=== PATIENT | female | born 1960 | race Caucasian/White ===

== ENCOUNTER 2023-11-07 16:51 | Inpatient (IN) ==
[2023-11-07 17:59] LABS: ABS Lymphocytes 0.7 10^3/uL (1.0-4.8); ABS Monocytes 0.6 10^3/uL (0.0-0.9); ABS Neutrophils 14.8 10^3/uL (1.5-7.6); Hematocrit 37.5 % (35-45); Hemoglobin 12.7 g/dL (11.5-14.3); Lymphocyte % 4.2 %; Mean Corpuscular Hemoglobin 32.2 pg (27-33); Mean Corpuscular Hgb Conc 33.9 g/dL (31-36); Mean Platelet Volume 8.1 fL (7.5-11.2); Platelet Count 325 10^3/uL (150-450); Red Blood Count 3.94 10^6/uL (3.63-4.92); Red Cell Distribution Width 13.6 % (12-17); White Blood Count 16.1 10^3/uL (3.8-11.8)
[2023-11-07] MEDS: Lactated Ringers SEPSIS* BAG 1,780 ML IV ONE (18:01)
[2023-11-07 18:15] LABS: Urine Appearance Turbid; Urine Bilirubin Negative (Negative); Urine Blood 3+ (Negative); Urine Color Yellow; Urine Glucose Trace (Negative); Urine Ketones 1+ (Negative); Urine Nitrite Negative (Negative); Urine Protein 2+ (>=100 mg/dL) (Negative); Urine Urobilinogen 2+ (Negative); Urine pH 6.5 (5.0-8.0)
[2023-11-07 18:17] LABS: Activated Partial Thrombo Time 29.4 seconds (26.0-38.0); INR 1.12 (0.83-1.13); Urine Bacteria Absent /HPF (Absent); Urine Red Blood Cell 3+(>10/hpf) /HPF (0-Trace); Urine Squamous Epithelial Cell Present /HPF (Absent); Urine White Blood Cell 2+(11-20/hpf) /HPF (0-Trace)
[2023-11-07 18:44] LABS: Albumin 3.4 g/dL (3.2-5.2); Albumin/Globulin Ratio 1.3 (1-3); Calcium 8.6 mg/dL (8.6-10.3); Creatinine, Serum 0.76 mg/dL (0.51-0.95); Globulin 2.7 g/dL (2-4); Potassium 3.3 mmol/L (3.5-5.0); Total Bilirubin 0.6 mg/dL (0.2-1.0); Total Protein 6.1 g/dL (6.4-8.9)
[2023-11-07 19:38] LABS: High Sensitivity Troponin 1 Hr 3004 pg/mL (<15)
[2023-11-07] MEDS: Iohexol 350 (CONTRAST) 500 ML MDV IV ONE (20:31)
[2023-11-07] MEDS: Heparin DRIP 25,000 UNITS BAG 25,000 UNITS/250 ML BAG IV SCH (21:18)
[2023-11-07] MEDS: Heparin 5000 UNITS/ML 1 mL VIAL IV SCH (21:19)
[2023-11-07 21:20] LABS: Creatinine, Serum 0.6 mg/dL (0.51-0.95); eGFR CKD-EPI 100.8 (>60)
[2023-11-07] MEDS ORDERED: Nitroglycerin 0.3 mg TAB SL ONE (22:09)
[2023-11-07] MEDS: KCL 20 MEQ/100 ML IVPREMIX 20 MEQ/100 ML BAG IV SCH (22:28)
[2023-11-07] MEDS ORDERED: Cefepime ADVAN 1 GM in NS 0.9% 50 ML 50 ML IVPB SCH (23:00)
[2023-11-07] MEDS ORDERED: Dextrose 50% Syringe 50 ml 25 GM/50 ML SYRINGE IV PUSH PRN (23:22)
[2023-11-07] MEDS: LoraTADine 10 mg TAB (NF) PO ONE (23:37)
[2023-11-08] MEDS: Calcium Carb (TUMS) 500 mg CHEW TAB PO ONE (00:12)
[2023-11-08] MEDS: Cefepime 1 GM in Dextrose 1 GM/50 ML BAG IV SCH (00:12)
[2023-11-08] MEDS: Lactated Ringers 1000 ml BAG 1,000 ML IV ONE (02:42)
[2023-11-08 03:58] LABS: TSH Ultra Thyroid Stim Horm 0.54 mcIU/mL (0.34-5.60)
[2023-11-08 05:26] LABS: ABS Basophils 0.1 10^3/uL (0.0-0.1); ABS Lymphocytes 0.8 10^3/uL (1.0-4.8); ABS Monocytes 0.7 10^3/uL (0.0-0.9); ABS Neutrophils 13.1 10^3/uL (1.5-7.6); Hematocrit 31.2 % (35-45); Hemoglobin 10.9 g/dL (11.5-14.3); Lymphocyte % 5.7 %; Mean Corpuscular Hemoglobin 32.8 pg (27-33); Mean Corpuscular Hgb Conc 34.8 g/dL (31-36); Mean Corpuscular Volume 94.2 fL (80-97); Mean Platelet Volume 7.7 fL (7.5-11.2); Platelet Count 306 10^3/uL (150-450); Red Blood Count 3.32 10^6/uL (3.63-4.92); Red Cell Distribution Width 13.5 % (12-17); White Blood Count 14.7 10^3/uL (3.8-11.8)
[2023-11-08 06:53] LABS: Creatinine, Serum 0.6 mg/dL (0.51-0.95); Magnesium 1.7 mg/dL (1.9-2.7); Potassium 2.8 mmol/L (3.5-5.0); eGFR CKD-EPI 100.8 (>60)
[2023-11-08] MEDS: Magnesium Sulfate 2 gm BAG 2 GM/50 ML BAG IVPB ONE (08:43)
[2023-11-08] MEDS: Potassium Chlor 20 meq TAB.ER PO ONE (08:43)
[2023-11-08] MEDS ORDERED: Sulfur Hexaflouride MICROSPHR 25 MG VIAL ONE (09:32)
[2023-11-08] MEDS: KCL 20 MEQ/100 ML IVPREMIX 20 MEQ/100 ML BAG IV SCH (10:06)
[2023-11-08 10:14] LABS: Albumin 2.8 g/dL (3.2-5.2); Albumin/Globulin Ratio 1.1 (1-3); Globulin 2.6 g/dL (2-4); Phosphorus 2.4 mg/dL (2.5-5.0); Total Bilirubin 0.7 mg/dL (0.2-1.0); Total Protein 5.4 g/dL (6.4-8.9)
[2023-11-08 10:32] LABS: High Sensitivity Troponin 1 Hr 3443 pg/mL (<15)
[2023-11-08 13:21] LABS: High Sensitivity Troponin 1 Hr 2805 pg/mL (<15); High Sensitivity Troponin 3 Hr 2805 pg/mL (<15)
[2023-11-08] MEDS: cefTRIAXone 2 gm/50 mL D5W 2 GM/50 ML BAG IV SCH (16:48)
[2023-11-08] MEDS ORDERED: Vancomycin per Pharmacy 1 EA NOTE FOLLOW UP SCH (17:00)
[2023-11-08] MEDS: Vancomycin 1,500 MG in NS 0.9% 250 ml 250 ML IVPB ONE (17:53)
[2023-11-08] MEDS: Lactated Ringers 1000 ml BAG 1,000 ML IV SCH (17:53)
[2023-11-08] MEDS: Heparin 5000 UNITS/ML 1 mL VIAL IV PRN (18:26)
[2023-11-08] MEDS: Heparin DRIP 25,000 UNITS BAG 25,000 UNITS/250 ML BAG IV SCH (18:28)
[2023-11-08 19:45] LABS: ABS Lymphocytes 0.7 10^3/uL (1.0-4.8); ABS Monocytes 0.6 10^3/uL (0.0-0.9); ABS Neutrophils 16.2 10^3/uL (1.5-7.6); Hematocrit 31.2 % (35-45); Hemoglobin 10.7 g/dL (11.5-14.3); Mean Corpuscular Hemoglobin 32.4 pg (27-33); Mean Corpuscular Hgb Conc 34.1 g/dL (31-36); Mean Corpuscular Volume 94.8 fL (80-97); Mean Platelet Volume 8.2 fL (7.5-11.2); Platelet Count 338 10^3/uL (150-450); Red Cell Distribution Width 13.8 % (12-17); White Blood Count 17.5 10^3/uL (3.8-11.8)
[2023-11-09] MEDS: Vancomycin 1,500 MG in NS 0.9% 250 ml 250 ML IVPB SCH (06:23)
[2023-11-09 06:51] LABS: ABS Lymphocytes 0.9 10^3/uL (1.0-4.8); ABS Monocytes 0.6 10^3/uL (0.0-0.9); ABS Neutrophils 14.4 10^3/uL (1.5-7.6); ABS Nucleated RBC 0.02 10^3/ul; Hematocrit 27.8 % (35-45); Hemoglobin 9.8 g/dL (11.5-14.3); Lymphocyte % 5.8 %; Mean Corpuscular Hemoglobin 33.2 pg (27-33); Mean Corpuscular Hgb Conc 35.3 g/dL (31-36); Mean Corpuscular Volume 94.2 fL (80-97); Mean Platelet Volume 8.2 fL (7.5-11.2); Nucleated Red Blood Cells % 0.1 %/100WBC (0.0-0.8); Platelet Count 346 10^3/uL (150-450); Red Blood Count 2.95 10^6/uL (3.63-4.92); Red Cell Distribution Width 13.8 % (12-17); White Blood Count 15.9 10^3/uL (3.8-11.8)
[2023-11-09 07:06] LABS: Calcium 7.6 mg/dL (8.6-10.3); Creatinine, Serum 0.6 mg/dL (0.51-0.95); Magnesium 1.9 mg/dL (1.9-2.7); Potassium 3.6 mmol/L (3.5-5.0); eGFR CKD-EPI 100.8 (>60)
[2023-11-09] MEDS: Sulfur Hexaflouride MICROSPHR 25 MG VIAL IV ONE (07:08)
[2023-11-09 09:40] LABS: Phosphorus 2.3 mg/dL (2.5-5.0)
[2023-11-09] MEDS: Magnesium Sulfate IV 1GM/100ML 1 GM/100 ML BAG IV ONE (10:06)
[2023-11-09 12:47] LABS: Hematocrit 28.8 % (35-45); Hemoglobin 9.8 g/dL (11.5-14.3); Mean Corpuscular Hemoglobin 32.1 pg (27-33); Mean Corpuscular Hgb Conc 34.2 g/dL (31-36); Mean Corpuscular Volume 93.8 fL (80-97); Mean Platelet Volume 7.8 fL (7.5-11.2); Platelet Count 372 10^3/uL (150-450); Red Blood Count 3.07 10^6/uL (3.63-4.92); Red Cell Distribution Width 13.5 % (12-17); White Blood Count 14.3 10^3/uL (3.8-11.8)
[2023-11-09 12:56] LABS: INR 1.14 (0.83-1.13)
[2023-11-09] MEDS: Potassium Phosphate IV 10 MMOL in NS 0.9% 250 ml 250 ML IVPB ONE (13:47)
[2023-11-09 15:30] LABS: Body Fluid Source Cerebral Spinal
[2023-11-09 15:42] LABS: CSF Glucose 74 mg/dL (40-70)
[2023-11-09] MEDS: Lactated Ringers 1000 ml BAG 500 ML IV ONE (15:56)
[2023-11-09] MEDS: Acetaminophen IV 1 GM/100ML 1,000 MG/100 ML BAG IV ONE (16:05)
[2023-11-09 16:21] LABS: Body Fluid Appearance Clear; Body Fluid Color Colorless; CSF Tube # 4
[2023-11-09 16:46] LABS: ABS Lymphocytes 0.6 10^3/uL (1.0-4.8); ABS Monocytes 0.7 10^3/uL (0.0-0.9); ABS Neutrophils 12.9 10^3/uL (1.5-7.6); ABS Nucleated RBC 0.02 10^3/ul; Eosinophil % 0.1 %; Hematocrit 28.4 % (35-45); Hemoglobin 9.6 g/dL (11.5-14.3); Lymphocyte % 4.1 %; Mean Corpuscular Hemoglobin 31.5 pg (27-33); Mean Corpuscular Hgb Conc 33.8 g/dL (31-36); Mean Corpuscular Volume 93.3 fL (80-97); Mean Platelet Volume 7.8 fL (7.5-11.2); Nucleated Red Blood Cells % 0.1 %/100WBC (0.0-0.8); Platelet Count 361 10^3/uL (150-450); Red Blood Count 3.05 10^6/uL (3.63-4.92); Red Cell Distribution Width 13.9 % (12-17); White Blood Count 14.2 10^3/uL (3.8-11.8)
[2023-11-09 17:40] LABS: Albumin 2.6 g/dL (3.2-5.2); Albumin/Globulin Ratio 1.1 (1-3); C Reactive Protein 379.92 mg/L (<8.01); Calcium 7.6 mg/dL (8.6-10.3); Creatinine, Serum 0.68 mg/dL (0.51-0.95); Globulin 2.4 g/dL (2-4); Magnesium 2.1 mg/dL (1.9-2.7); Phosphorus 2.1 mg/dL (2.5-5.0); Potassium 3.8 mmol/L (3.5-5.0); Total Bilirubin 0.6 mg/dL (0.2-1.0); eGFR CKD-EPI 97.8 (>60)
[2023-11-09] MEDS ORDERED: Zosyn per Pharmacy NOTE FOLLOW UP SCH (18:00)
[2023-11-09 18:05] LABS: Body Fluid Mono 28 %; Body Fluid Total Cells Counted 200
[2023-11-09 18:14] LABS: CSF Body Fluid WBC 2 /mcL
[2023-11-09 18:19] LABS: High Sensitivity Troponin 1 Hr 691 pg/mL (<15)
[2023-11-09 19:02] LABS: RBC Parasite Smear No Parasites Seen (No Parasite)
[2023-11-09] MEDS: Sodium Phosphate IV 15 MMOL in NS 0.9% 250 ml 250 ML IV ONE (19:54)
[2023-11-09] MEDS: NS 0.9% 500 ml BAG 500 ML IV ONE (19:56)
[2023-11-09] MEDS: Piperacillin/Tazobac 3.375 BAG 3.375 GM/100 ML BAG IV ONE (21:09)
[2023-11-09] MEDS: DOXYcycline 100 MG in NS 0.9% 250 ml 250 ML IVPB SCH (22:18)
[2023-11-09] MEDS: Acetaminophen IV 1 GM/100ML 1,000 MG/100 ML BAG IV SCH (22:46)
[2023-11-10] MEDS: ZOSYN 3.375 GM Q8H per EXTENDED INFUSION IV SCH (01:05)
[2023-11-10] MEDS: Iohexol 300 (CONTRAST) 10 ML SDV IV ONE (04:09)
[2023-11-10 06:02] LABS: ABS Lymphocytes 0.7 10^3/uL (1.0-4.8); ABS Monocytes 0.6 10^3/uL (0.0-0.9); ABS Neutrophils 11.9 10^3/uL (1.5-7.6); ABS Nucleated RBC 0.01 10^3/ul; Eosinophil % 0.1 %; Hematocrit 26.4 % (35-45); Hemoglobin 9.1 g/dL (11.5-14.3); Lymphocyte % 5.6 %; Mean Corpuscular Hemoglobin 32.3 pg (27-33); Mean Corpuscular Hgb Conc 34.5 g/dL (31-36); Mean Corpuscular Volume 93.4 fL (80-97); Mean Platelet Volume 7.9 fL (7.5-11.2); Nucleated Red Blood Cells % 0.1 %/100WBC (0.0-0.8); Platelet Count 361 10^3/uL (150-450); Red Blood Count 2.83 10^6/uL (3.63-4.92); White Blood Count 13.4 10^3/uL (3.8-11.8)
[2023-11-10 06:18] LABS: Albumin 2.4 g/dL (3.2-5.2); Calcium 7.4 mg/dL (8.6-10.3); Creatinine, Serum 0.72 mg/dL (0.51-0.95); Globulin 2.5 g/dL (2-4); Magnesium 2.1 mg/dL (1.9-2.7); Phosphorus 3.4 mg/dL (2.5-5.0); Potassium 3.4 mmol/L (3.5-5.0); Total Bilirubin 0.5 mg/dL (0.2-1.0); Total Protein 4.9 g/dL (6.4-8.9); eGFR CKD-EPI 93.9 (>60)
[2023-11-10] MEDS: Vancomycin Trough Check NOTE FOLLOW UP ONE (08:41)
[2023-11-10] MEDS: Potassium Chlor 20 meq TAB.ER PO ONE (09:17)
[2023-11-10 09:18] LABS: High Sensitivity Troponin 1 Hr 366 pg/mL (<15)
[2023-11-10] MEDS ORDERED: Calcium Carb (TUMS) 500 mg CHEW TAB PO PRN (11:23)
[2023-11-10] MEDS: Enoxaparin 40 MG/0.4 ML SYR SUBCUT SCH (22:40)
[2023-11-11 00:52] LABS: Anaplasma phagocytophilum Positive (Negative); B. miyamotoi PCR, B Negative (Negative); Babesia divergens/MO-1 Negative (Negative); Babesia ducani Negative (Negative); Ehrlichia chaffeensis Negative (Negative); Ehrlichia ewingii/canis Negative (Negative); Ehrlichia muris eauclairensis Negative (Negative)
[2023-11-11 07:49] LABS: Hematocrit 27.2 % (35-45); Hemoglobin 9.6 g/dL (11.5-14.3); Mean Corpuscular Hemoglobin 33.6 pg (27-33); Mean Corpuscular Hgb Conc 35.2 g/dL (31-36); Mean Corpuscular Volume 95.4 fL (80-97); Mean Platelet Volume 8.2 fL (7.5-11.2); Platelet Count 463 10^3/uL (150-450); Red Blood Count 2.85 10^6/uL (3.63-4.92); Red Cell Distribution Width 14.4 % (12-17); White Blood Count 9.3 10^3/uL (3.8-11.8)
[2023-11-11 08:30] LABS: Calcium 7.7 mg/dL (8.6-10.3); Creatinine, Serum 0.66 mg/dL (0.51-0.95); HDL Cholesterol 5.1 mg/dL; Magnesium 2.2 mg/dL (1.9-2.7); Potassium 4.1 mmol/L (3.5-5.0); eGFR CKD-EPI 98.5 (>60)
[2023-11-11 08:44] LABS: ABS Basophils 0.1 10^3/uL (0.0-0.1); ABS Eosinophils 0.2 10^3/uL (0.0-0.5); ABS Lymphocytes 1.1 10^3/uL (1.0-4.8); ABS Neutrophils 6.9 10^3/uL (1.5-7.6); ABS Nucleated RBC 0.01 10^3/ul; Eosinophil % 1.9 %; Lymphocyte % 11.6 %; Nucleated Red Blood Cells % 0.1 %/100WBC (0.0-0.8)
[2023-11-12] MEDS ORDERED: Vancomycin Trough Check NOTE FOLLOW UP ONE (05:30)
[2023-11-12 07:02] LABS: Hematocrit 29.4 % (35-45); Hemoglobin 10.5 g/dL (11.5-14.3); Mean Corpuscular Hemoglobin 33.5 pg (27-33); Mean Corpuscular Hgb Conc 35.5 g/dL (31-36); Mean Corpuscular Volume 94.2 fL (80-97); Platelet Count 632 10^3/uL (150-450); Red Blood Count 3.12 10^6/uL (3.63-4.92); Red Cell Distribution Width 14.3 % (12-17); White Blood Count 7.9 10^3/uL (3.8-11.8)
[2023-11-12 07:15] LABS: Calcium 7.8 mg/dL (8.6-10.3); Creatinine, Serum 0.64 mg/dL (0.51-0.95); Potassium 4.2 mmol/L (3.5-5.0); eGFR CKD-EPI 99.2 (>60)
[2023-11-12 07:36] LABS: ABS Eosinophils 0.1 10^3/uL (0.0-0.5); ABS Lymphocytes 1.4 10^3/uL (1.0-4.8); ABS Neutrophils 5.3 10^3/uL (1.5-7.6); ABS Nucleated RBC 0.01 10^3/ul; Eosinophil % 1.8 %; Lymphocyte % 17.9 %; Nucleated Red Blood Cells % 0.2 %/100WBC (0.0-0.8); RBC Morphology Normal (Normal)
[2023-11-12 13:29] VITALS: BP 93/64
[2023-11-12 16:04] LABS: EBV Capsid Ag IgG Ab Positive (Negative); EBV Capsid Ag IgM Ab Negative (Negative); Epstein-Barr Nuclear Antigen Positive (Negative)
[2023-11-12 22:24] LABS: HSV 1 PCR, CSF Negative (Negative); HSV 2 PCR, CSF Negative (Negative)
[2023-11-13 11:06] LABS: Cytomegalovirus IgG Antibody Negative (Negative)
[2023-11-13 11:30] LABS: Flag, M-protein Isotype Negative (Negative); Immunoglobulin A (IgA), S 226 mg/dL (61 - 356); Immunoglobulin G (IgG), S 656 mg/dL (767 - 1590); Immunoglobulin M (IgM), S 405 mg/dL (37 - 286)
== END 2023-11-12 16:30 | disposition home health service (06) | DRG 871 ==
LOC: EDHOLD 16:51 → ED 16:51 → SUATTDRO 20:30 → OBSVTOIN 20:30 → EDHOLD 11-08 06:54 → MEDTELE 11-08 16:55
PROVIDERS: ADMIT Internal Medicine; ATTEND Internal Medicine

== ENCOUNTER 2023-11-16 06:28 | Inpatient (IN) ==
[2023-11-16 07:29] LABS: Hematocrit 33.1 % (35-45); Hemoglobin 11.5 g/dL (11.5-14.3); Mean Corpuscular Hemoglobin 33.4 pg (27-33); Mean Corpuscular Hgb Conc 34.7 g/dL (31-36); Mean Corpuscular Volume 96.2 fL (80-97); Mean Platelet Volume 7.3 fL (7.5-11.2); Platelet Count 883 10^3/uL (150-450); Red Blood Count 3.44 10^6/uL (3.63-4.92); Red Cell Distribution Width 14.9 % (12-17); White Blood Count 7.3 10^3/uL (3.8-11.8)
[2023-11-16 07:34] LABS: INR 1.1 (0.83-1.13)
[2023-11-16 07:51] LABS: Albumin 3.1 g/dL (3.2-5.2); C Reactive Protein 32.01 mg/L (<8.01); Calcium 8.4 mg/dL (8.6-10.3); Creatinine, Serum 0.55 mg/dL (0.51-0.95); Globulin 3.2 g/dL (2-4); Potassium 4.6 mmol/L (3.5-5.0); Total Bilirubin 0.5 mg/dL (0.2-1.0); Total Protein 6.3 g/dL (6.4-8.9); eGFR CKD-EPI 102.9 (>60)
[2023-11-16 08:26] LABS: Venous Bicarbonate HCO3 27.7 mmol/L (24-28)
[2023-11-16 08:50] LABS: High Sensitivity Troponin 1 Hr 27 pg/mL (<15)
[2023-11-16] MEDS: Furosemide 40 mg/4 ml IV VIAL IV SLOW PU ONE (08:53)
[2023-11-16 09:22] LABS: ABS Basophils 0.1 10^3/uL (0.0-0.1); ABS Eosinophils 0.1 10^3/uL (0.0-0.5); ABS Lymphocytes 1.1 10^3/uL (1.0-4.8); ABS Monocytes 0.8 10^3/uL (0.0-0.9); ABS Neutrophils 5.2 10^3/uL (1.5-7.6); ABS Nucleated RBC 0.01 10^3/ul; Eosinophil % 1.8 %; Lymphocyte % 14.6 %; Nucleated Red Blood Cells % 0.1 %/100WBC (0.0-0.8); RBC Morphology Normal (Normal)
[2023-11-16] MEDS: Aspirin EC 81 mg TAB.EC (enteric coated) PO SCH (12:30)
[2023-11-16 15:35] LABS: Magnesium 2.1 mg/dL (1.9-2.7); Phosphorus 3.6 mg/dL (2.5-5.0)
[2023-11-16 15:45] LABS: TSH Ultra Thyroid Stim Horm 2.94 mcIU/mL (0.34-5.60)
[2023-11-16] MEDS: Enoxaparin 40 MG/0.4 ML SYR SUBCUT SCH (16:05)
[2023-11-16] MEDS: Magnesium Sulfate IV 1GM/100ML 1 GM/100 ML BAG IV ONE (22:07)
[2023-11-16] MEDS: Calcium Carb (TUMS) 500 mg CHEW TAB PO ONE (22:10)
[2023-11-17] MEDS: Magnesium Sulfate 2 gm BAG 2 GM/50 ML BAG IVPB ONE ×2 (01:14→16:36)
[2023-11-17 02:39] LABS: Albumin/Globulin Ratio 1.1 (1-3); Calcium 8.3 mg/dL (8.6-10.3); Creatinine, Serum 0.6 mg/dL (0.51-0.95); Globulin 2.8 g/dL (2-4); Magnesium 2.8 mg/dL (1.9-2.7); Total Bilirubin 0.4 mg/dL (0.2-1.0); Total Protein 5.8 g/dL (6.4-8.9); eGFR CKD-EPI 100.8 (>60)
[2023-11-17] MEDS: CALCIUM GLUCONATE 1GM/50ML NS 1 GM/50 ML BAG IV ONE (03:19)
[2023-11-17] MEDS ORDERED: Amiodarone IV 150 mg/3 ml VIAL ONE (06:25)
[2023-11-17] MEDS ORDERED: EPINEPHrine SYR 0.1MG/ML 10 ml SYRINGE IV ONE (06:25)
[2023-11-17] MEDS ORDERED: .Amiodarone 24HR ONLY IV Protocol Order Note IV ONE (06:49)
[2023-11-17] MEDS: Amiodarone 360 MG IVPREMIX 360 MG/200 ML BAG IV SCH ×2 (07:13→13:05)
[2023-11-17] MEDS: Furosemide 20 mg/2 ml IV VIAL IV ONE (07:47)
[2023-11-17] MEDS: Sulfur Hexaflouride MICROSPHR 25 MG VIAL IV ONE (09:03)
[2023-11-17 10:25] LABS: Hematocrit 36.2 % (35-45); Hemoglobin 12.1 g/dL (11.5-14.3); Mean Corpuscular Hemoglobin 32.3 pg (27-33); Mean Corpuscular Hgb Conc 33.6 g/dL (31-36); Mean Corpuscular Volume 96.2 fL (80-97); Platelet Count 809 10^3/uL (150-450); Red Blood Count 3.76 10^6/uL (3.63-4.92); Red Cell Distribution Width 15.2 % (12-17); White Blood Count 15.7 10^3/uL (3.8-11.8)
[2023-11-17 10:56] LABS: Calcium 8.6 mg/dL (8.6-10.3); Creatinine, Serum 0.64 mg/dL (0.51-0.95); Magnesium 2.2 mg/dL (1.9-2.7); Potassium 4.4 mmol/L (3.5-5.0); eGFR CKD-EPI 99.2 (>60)
[2023-11-17] MEDS: fentaNYL 100 mcg/2 ml 50 MCG/ML VIAL IV SLOW PU PRN (15:25)
[2023-11-18 05:00] LABS: Hematocrit 32.5 % (35-45); Hemoglobin 11.2 g/dL (11.5-14.3); Mean Corpuscular Hemoglobin 33.1 pg (27-33); Mean Corpuscular Hgb Conc 34.5 g/dL (31-36); Mean Corpuscular Volume 95.9 fL (80-97); Platelet Count 661 10^3/uL (150-450); Red Blood Count 3.39 10^6/uL (3.63-4.92); Red Cell Distribution Width 15.7 % (12-17); White Blood Count 13.7 10^3/uL (3.8-11.8)
[2023-11-18 05:46] LABS: Calcium 8.1 mg/dL (8.6-10.3); Creatinine, Serum 0.65 mg/dL (0.51-0.95); Magnesium 2.3 mg/dL (1.9-2.7); Potassium 4.3 mmol/L (3.5-5.0); eGFR CKD-EPI 98.9 (>60)
[2023-11-18 05:59] LABS: ABS Eosinophils 0.1 10^3/uL (0.0-0.5); ABS Monocytes 1.5 10^3/uL (0.0-0.9); ABS Neutrophils 11.1 10^3/uL (1.5-7.6); ABS Nucleated RBC 0.01 10^3/ul; Eosinophil % 0.7 %; Lymphocyte % 7.5 %; Nucleated Red Blood Cells % 0.1 %/100WBC (0.0-0.8)
[2023-11-18] MEDS ORDERED: VERAPAMIL 2.5 MG/ML 2 ML VIAL ** 5 mg/2 ml ONE (09:15)
[2023-11-18] MEDS ORDERED: Midazolam 5 mg/5 ml VIAL 1 mg/ml 5 ml VIAL (5 mg) ONE (09:15)
[2023-11-18] MEDS ORDERED: fentaNYL 100 mcg/2 ml 50 MCG/ML VIAL ONE (09:15)
[2023-11-18] MEDS ORDERED: nitroGLYCERIN DRIP 25,000 MCG/250 ML BTL ONE (09:15)
[2023-11-18] MEDS ORDERED: Heparin 1,000 UNIT/ML 10 ml (10,000 UNITS) CATHLAB/DIALYSIS ONE (09:15)
[2023-11-18] MEDS ORDERED: Lidocaine 1% MPF 5 ML VIAL ONE (09:16)
[2023-11-18] MEDS ORDERED: Heparin 2 UNITS/ML 1000 mls 2,000 ML IV ONE (09:16)
[2023-11-18] MEDS ORDERED: Iohexol 350 (CONTRAST) 200 ML MDV IV ONE (09:17)
[2023-11-18] MEDS ORDERED: Phenylephrine 40 mcg/mL 10mL (400mcg) SYRINGE ONE (10:02)
[2023-11-18] MEDS: fentaNYL 100 mcg/2 ml 50 MCG/ML VIAL IV SLOW PU ONE (10:35)
[2023-11-18] MEDS: Midazolam 10 mg/10 ml VIAL 1 mg/ml 10 ml VIAL (10 mg) IV SLOW PU ONE (10:36)
[2023-11-18] MEDS: NS 0.9% 1000 ml BAG 1,000 ML IV SCH (10:45)
[2023-11-18] MEDS: Hyaluronidase HUMAN 15 UNIT in Sodium Chloride 0.9% 0.9 ML INTRADERM ONE (16:31)
[2023-11-18] MEDS: Lactated Ringers 1000 ml BAG 500 ML IV ONE (21:43)
[2023-11-19] MEDS: Lidocaine PATCH 5% PATCH TRANSDERM SCH (00:50)
[2023-11-20 01:54] LABS: Hematocrit 29.4 % (35-45); Mean Corpuscular Hemoglobin 32.9 pg (27-33); Mean Platelet Volume 7.1 fL (7.5-11.2); Platelet Count 462 10^3/uL (150-450); Red Blood Count 3.03 10^6/uL (3.63-4.92); Red Cell Distribution Width 15.5 % (12-17); White Blood Count 10.5 10^3/uL (3.8-11.8)
[2023-11-20] MEDS: Heparin 5000 UNITS/ML 1 mL VIAL IV SCH (02:04)
[2023-11-20] MEDS: Heparin DRIP 25,000 UNITS BAG 25,000 UNITS/250 ML BAG IV SCH (02:06)
[2023-11-20 02:31] LABS: Creatinine, Serum 0.52 mg/dL (0.51-0.95); eGFR CKD-EPI 104.3 (>60)
[2023-11-20 03:22] LABS: ABS Eosinophils 0.3 10^3/uL (0.0-0.5); ABS Lymphocytes 1.7 10^3/uL (1.0-4.8); ABS Monocytes 1.5 10^3/uL (0.0-0.9); ABS Neutrophils 6.9 10^3/uL (1.5-7.6); ABS Nucleated RBC 0.01 10^3/ul; Eosinophil % 2.6 %; Lymphocyte % 16.4 %; Nucleated Red Blood Cells % 0.1 %/100WBC (0.0-0.8)
[2023-11-20 03:23] LABS: RBC Morphology Normal (Normal)
[2023-11-20] MEDS ORDERED: Warfarin per PHARMACY **NOTE FOLLOW UP SCH (18:00)
[2023-11-20] MEDS: Furosemide 20 mg/2 ml IV VIAL IV SLOW PU ONE (19:27)
[2023-11-20] MEDS ORDERED: Senna TAB 8.6 mg TAB PO PRN (19:39)
[2023-11-20] MEDS ORDERED: Magnesium Hydroxide LIQ 30 ML UDC PO PRN (19:39)
[2023-11-21 06:20] LABS: Mean Corpuscular Hemoglobin 33.7 pg (27-33); Mean Corpuscular Hgb Conc 34.6 g/dL (31-36); Mean Corpuscular Volume 97.5 fL (80-97); Mean Platelet Volume 7.3 fL (7.5-11.2); Platelet Count 418 10^3/uL (150-450); Red Blood Count 2.97 10^6/uL (3.63-4.92); Red Cell Distribution Width 15.3 % (12-17)
[2023-11-21 06:45] LABS: Activated Partial Thrombo Time 67.7 seconds (26.0-38.0); INR 1.13 (0.83-1.13)
[2023-11-21 07:34] LABS: ABS Eosinophils 0.2 10^3/uL (0.0-0.5); ABS Lymphocytes 1.8 10^3/uL (1.0-4.8); ABS Monocytes 0.7 10^3/uL (0.0-0.9); ABS Neutrophils 5.2 10^3/uL (1.5-7.6); Eosinophil % 2.8 %; Lymphocyte % 22.4 %; RBC Morphology Normal (Normal)
[2023-11-21] MEDS ORDERED: Senna TAB 8.6 mg TAB PO PRN (12:13)
[2023-11-21] MEDS: Polyethylene Glycol 3350 17 GM PACKET PO SCH (14:11)
[2023-11-21] MEDS: Magnesium Hydroxide LIQ 30 ML UDC PO SCH (20:59)
[2023-11-22] MEDS: Warfarin DAILY REMINDER **NOTE FOLLOW UP SCH (00:26)
[2023-11-22 06:31] LABS: Activated Partial Thrombo Time 75.6 seconds (26.0-38.0); INR 1.52 (0.83-1.13)
[2023-11-22 06:54] LABS: Calcium 8.4 mg/dL (8.6-10.3); Creatinine, Serum 0.55 mg/dL (0.51-0.95); Magnesium 2.1 mg/dL (1.9-2.7); Potassium 4.1 mmol/L (3.5-5.0); eGFR CKD-EPI 102.9 (>60)
[2023-11-22 07:47] LABS: Hematocrit 29.7 % (35-45); Hemoglobin 10.1 g/dL (11.5-14.3); Mean Corpuscular Hgb Conc 33.9 g/dL (31-36); Mean Corpuscular Volume 97.4 fL (80-97); Mean Platelet Volume 7.5 fL (7.5-11.2); Platelet Count 401 10^3/uL (150-450); Red Blood Count 3.05 10^6/uL (3.63-4.92); Red Cell Distribution Width 15.2 % (12-17); White Blood Count 6.2 10^3/uL (3.8-11.8)
[2023-11-22 08:46] LABS: ABS Basophils 0.1 10^3/uL (0.0-0.1); ABS Eosinophils 0.2 10^3/uL (0.0-0.5); ABS Lymphocytes 1.5 10^3/uL (1.0-4.8); ABS Monocytes 0.7 10^3/uL (0.0-0.9); ABS Neutrophils 3.7 10^3/uL (1.5-7.6); Eosinophil % 3.7 %; Lymphocyte % 23.5 %; Nucleated Red Blood Cells % 0.1 %/100WBC (0.0-0.8)
[2023-11-23 06:20] LABS: ABS Basophils 0.1 10^3/uL (0.0-0.1); ABS Eosinophils 0.2 10^3/uL (0.0-0.5); ABS Lymphocytes 1.6 10^3/uL (1.0-4.8); ABS Monocytes 0.5 10^3/uL (0.0-0.9); ABS Neutrophils 2.7 10^3/uL (1.5-7.6); Eosinophil % 4.1 %; Hematocrit 29.5 % (35-45); Hemoglobin 9.9 g/dL (11.5-14.3); Lymphocyte % 30.3 %; Mean Corpuscular Hemoglobin 32.4 pg (27-33); Mean Corpuscular Hgb Conc 33.5 g/dL (31-36); Mean Corpuscular Volume 96.9 fL (80-97); Mean Platelet Volume 7.4 fL (7.5-11.2); Nucleated Red Blood Cells % 0.1 %/100WBC (0.0-0.8); Platelet Count 403 10^3/uL (150-450); Red Blood Count 3.04 10^6/uL (3.63-4.92); Red Cell Distribution Width 15.2 % (12-17); White Blood Count 5.2 10^3/uL (3.8-11.8)
[2023-11-23 06:43] LABS: Activated Partial Thrombo Time 86.5 seconds (26.0-38.0); INR 2.56 (0.83-1.13)
[2023-11-24 07:58] LABS: ABS Basophils 0.1 10^3/uL (0.0-0.1); ABS Eosinophils 0.2 10^3/uL (0.0-0.5); ABS Lymphocytes 1.4 10^3/uL (1.0-4.8); ABS Monocytes 0.6 10^3/uL (0.0-0.9); ABS Nucleated RBC 0.01 10^3/ul; Eosinophil % 4.1 %; Hematocrit 31.9 % (35-45); Hemoglobin 10.9 g/dL (11.5-14.3); Lymphocyte % 26.7 %; Mean Platelet Volume 7.8 fL (7.5-11.2); Nucleated Red Blood Cells % 0.1 %/100WBC (0.0-0.8); Platelet Count 382 10^3/uL (150-450); Red Blood Count 3.29 10^6/uL (3.63-4.92); Red Cell Distribution Width 15.4 % (12-17); White Blood Count 5.4 10^3/uL (3.8-11.8)
[2023-11-24 08:11] LABS: Creatinine, Serum 0.61 mg/dL (0.51-0.95); eGFR CKD-EPI 100.4 (>60)
[2023-11-24 08:13] LABS: INR 3.11 (0.83-1.13)
[2023-11-24 19:41] VITALS: BP 106/67
== END 2023-11-24 18:59 | disposition short-term general hospital (02) | DRG 286 ==
LOC: ED 06:28 → EDHOLD 06:28 → SUATTDRO 10:24 → MED 19:26 → MEDTELE 11-17 00:51 → ICU 11-17 06:36 → MEDTELE 11-18 17:31
PROVIDERS: ADMIT Internal Medicine; ATTEND Family Medicine